=== PATIENT | male | born 1995 | race Caucasian/White ===

== ENCOUNTER 2022-12-10 19:30 | Emergency (ER) | payer SELFPAY ==
[~2022-12-10] VITALS: Ht 182.8 cm; Wt 114.2 kg
[2022-12-10] MEDS ORDERED: AUGMENTIN 875 MG TAB (AMOXICILLIN/CLAVULANATE) PO STA (19:43)
[2022-12-10] MEDS ORDERED: AMOX1TAB12 PO (19:50)
[2022-12-10] MEDS ORDERED: IBUP-1780 PO (19:50)
--- NOTE | 2022-12-10 19:52 | ED EENT ---
History of Present Illness General Stated Complaint: RIGHT JAW PAIN Source: patient History of Present Illness Date Seen by Provider: December 10, 2022 Time Seen by Provider: 19:34 Initial Comments 27-year-old male presenting with complaints of 4 days of increasing pain and swelling to the right lower jaw. He has a broken tooth that broke 3 years ago in that area. He has increasing pain that ibuprofen is no longer controlling. He states that he is allergic to naproxen as it causes him to have night terrors. He is able to tolerate ibuprofen and acetaminophen. He request that he not be given stronger pain medications. He states that he moved here about a month ago and has not establish care with anybody and he does not have any insurance. Given information for [facility] both primary care and dental so that he could follow-up with them since they have a sliding scale charges and additional funding to help with seeing patients and getting prescriptions Timing/Duration: gradual (over the last 4 days) Severity: severe Location: dental Prearrival Treatment: over the counter meds Modifying Factors: Worse With Other (eating and drinking makes the pain worse) Associated Symptoms: No change in hearing, No cough, No drooling, No ear drainage, No facial pain/swelling, No fever, No malaise, No nasal c ongestion/drainage, No poor fluid intake, No poor solids intake, No sinus infection, No sore throat; tooth pain; No voice change Allergies and Home Medications Allergies Coded Allergies: naproxen (Verified Adverse Reaction, Severe, 12/10/22) Night Terrors Patient Home Medication List Home Medication List Reviewed: Yes Amoxicillin/Potassium Clav (Amox Tr-K Clv 875-125 mg Tab) 875 Mg-125 Mg Tablet, 1 EACH PO BID Prescribed by: HARLAN RAYMUNDO on 12/10/221949 Ibuprofen (Ibuprofen) 800 Mg Tablet, 800 MG PO Q8H PRN for PAIN Prescribed by: HARLAN RAYMUNDO on 12/10/221949 Review of Systems Review of Systems Constitutional: No chills; fever (subjective fever last week but states he had a "stomach bug" as well) Eyes: No Symptoms Reported Ears: No Symptoms Reported Nose: no symptoms reported Mouth: see HPI Throat: no symptoms reported Respiratory: no symptoms reported Cardiovascular: no symptoms reported Gastrointestinal: no symptoms reported Musculoskeletal: no symptoms reported Skin: no symptoms reported Neurological: No Symptoms Reported Past Drkmmsa-Mcyrxe-Avwxhw Hx Patient Social History Tobacco Use?: Yes Substance use?: No Alcohol Use?: No Physical Exam Vital Signs Vital Signs - First Documented 12/10/22 19:35 Temp 36.7 Pulse 64 Resp 16 B/P (MAP) 148/97 (114) Pulse Ox 100 O2 Delivery Room Air Height, Weight, BMI Height: '" Weight: lbs. oz. kg; BMI Method: General Appearance: WD/WN, no apparent distress Eyes: bilateral eye PERRL, bilateral eye EOMI Ears: bilateral ear auricle normal, bilateral ear canal normal, bilateral ear TM normal Nose: normal inspection Mouth/Throat: pharynx normal, dental tenderness, other (right wisdom tooth has a cavity/hole defect to the tooth on the buccal aspect of the tooth) Neck: non-tender, full range of motion, supple, normal inspection Cardiovascular: normal peripheral pulses, regular rate, rhythm Respiratory: chest non-tender, lungs clear, normal breath sounds Gastrointestinal: normal bowel sounds, soft, no pulsatile mass Neurologic/Psychiatric: alert, oriented x 3 Skin: normal color, warm/dry Progress/Results/Core Measures Results/Orders My Orders Orders - HARLAN RAYMUNDO MD Amoxicillin/Clavulanate Tablet (Augmenti (12/10/22 19:43) Vital Signs/I&O 12/10/22 12/10/22 19:35 19:59 Temp 36.7 36.7 Pulse 64 64 Resp 16 16 B/P (MAP) 148/97 (114) 148/97 Pulse Ox 100 100 O2 Delivery Room Air Room Air Progress Progress Note : Progress Note Potential diagnosis of dental abscess, pain due to dental caries, infected tooth. With him having defect and cavity to the tooth that is tender with some gum swelling will start him on antibiotics of Augmentin 875 here in the ED and sent a prescription to the pharmacy to continue this. Also sent a prescription for ibuprofen 800 mg p.o. every 8 hours since patient requested not to have stronger narcotic pain medicines. He was advised that he can also take acetaminophen to help with the pain. He can try alternating ice and heat to the jawline to help with pain and swelling. Try to keep his head elevated at least 20 to 30 degrees to help limit swelling while he is sleeping. Established with primary care provider and if he goes through [facility] they do have dental services as well. Departure Impression Primary Impression: Pain due to dental caries Additional Impression: Infected dental caries Disposition: 01 HOME, SELF-CARE Condition: Stable Departure-Patient Inst. Decision time for Depature: 19:49 Referrals: NO,LOCAL PHYSICIAN (PCP) Primary Care Physician [facility] OF Patient Instructions: Tooth Decay ED, Tooth Abscess ED, Dental Pain ED Add. Discharge Instructions: Take the full course of antibiotics to treat for dental infection. Establish and follow-up with dentist and [facility] for primary care. They can be reached by calling [phone]. The [facility] does have dental services available in [place]. You may try alternating cold pack and hot pack to the side of the face to help w ith pain and swelling. Try to sleep with your head elevated 20 to 30 degrees to help limit swelling. You may continue with ibuprofen up to 800 mg every 8 hours as needed for pain. This can also help with inflammation and swelling. In addition you can take acetaminophen or Tylenol 650 mg every 4-6 hours. Scripts Ibuprofen (Ibuprofen) 800 Mg Tablet 800 MG PO Q8H PRN for PAIN for 10 Days, #30 TAB 0 Refills Prov: HARLAN RAYMUNDO MD 12/10/22 Amoxicillin/Potassium Clav (Amox Tr-K Clv 875-125 mg Tab) 875 Mg-125 Mg Tablet 1 EACH PO BID for dental infection for 10 Days, #20 TAB 0 Refills Prov: HARLAN RAYMUNDO MD 12/10/22 Images Mouth/Nose 1 - Caries, Swelling, Tenderness HARLAN RAYMUNDO MD December 10, 2022 19:52
[2022-12-10 19:59] VITALS: BP 148/97
== END 2022-12-10 19:59 | disposition home or self-care (01) ==
LOC: ER FS 19:34
DX: K02.9 Dental caries, unspecified (principal); K04.7 Periapical abscess without sinus; Z88.6 Allergy status to analgesic agent
CPT/HCPCS: 99283